=== PATIENT | male | born 1960 | race Caucasian/White ===

== ENCOUNTER 2022-12-23 23:35 | Emergency (ER) | payer SELFPAY ==
[2022-12-23 23:38] VITALS: BP 128/78; PULSE 98; RESP 18; TEMP 37.3; O2SAT 98
--- NOTE | 2022-12-23 23:40 | ED.SOB ---
HPI - SOB/Dyspnea General Chief Complaint: Unspecified Stated Complaint: Trach Issues Time Seen by Provider: 12/23/22 23:38 Source: patient and family Mode of arrival: EMS History of Present Illness HPI Narrative: 62-year-old male, hospice patient, with a history of advanced throat cancer( diagnosed in August of 2022) and deemed not a candidate for chemo/ RT, status post trach/ PEG,COPD, CAD /mi/status post stent, chronic pain arising from his throat, anxiety was brought to the ER by the EMS for -- worsening shortness of breath -- increased secretions through his tracheostomy and unable to suction affectively. his secretions or mucopurulent. EMS was successful in partially remainder some secretions RI following which he had had improved oxygenation. The patient wants to continue being on hospice. He wants affective suctioning of his secretions and possibly antibiotics. He denies any fever or chills. No chest pain. Chronic shortness of breath. MD elicited complaint: shortness of breath, cough and anxiety Pertinent past history: COPD and tracheostomy Onset (ago): unknown ( Patient has chronic shortness of breath) Context: recent illness and anxiety Timing: constant Severity: moderate Exacerbating factors: nothing Relieving factors: nothing Known history of: COPD Associated symptoms: sputum production and chest congestion Treatment prior to arrival: none Related Data Home oxygen amount: none Allergies Allergy/AdvReac Type Severity Reaction Status Date / Time No Known Allergies Allergy Verified 12/24/22 00:22 Review of Systems Review of Systems: All systems reviewed & are unremarkable except as noted in HPI and below Constitutional: Constitutional: Reports as per HPI, Reports chills and Reports weakness Eyes: Eyes: Reports as per HPI and Reports no additional eye complaints ENT: Reports system reviewed and no additional complaints, except as documented Comments: advanced throat cancer with chronic throat pain status post tracheostomy Cardiovascular: Cardiovascular: Reports as per HPI Respiratory: Respiratory: Reports as per HPI, Reports chest congestion, Reports cough and Reports dyspnea Gastrointestinal: Gastrointestinal: Reports as per HPI and Reports no additional gastrointestinal complaints Comments: on G-tube feeds. Genitourinary: Genitourinary: Reports no additional male genitourinary complaints Musculoskeletal: Musculoskeletal: Reports no additional musculoskeletal complaints and Reports as per HPI Integumentary/Breasts: Skin/Breast: Reports system reviewed and no additional complaints, except as docu and Reports as per HPI Comments: Multiple subcutaneous lipomas on the face.. Profound wasting with skin hanging down Neurologic: Reports system reviewed and no additional complaints, except as documented Psychiatric: Psychiatric: Reports no additional psychiatric complaints, Reports as per HPI and Reports anxiety Endocrine: Endocrine: Reports no additional endocrine complaints Hematologic/Lymphatic: Hematologic/Lymphatic: Reports no additional hematologic/lymphatic complaints and Reports as per HPI Allergic/Immunologic: Allergic/Immunologic: Reports no additional allergic/immunologic complaints and Reports as per HPI [facility] Past Medical History Medical History (Updated 12/24/22 @ 00:18 by Merlin Cueva MD) CAD (coronary artery disease) COPD (chronic obstructive pulmonary disease) Throat cancer Surgical History Surgical History (Updated 12/24/22 @ 00:07 by Merlin Cueva MD) H/O heart artery stent Exam Narrative: patient looks emaciated and wasted. Const: General: ill appearing Nutritional Appearance: thin Orientation/consciousness: patient oriented x3 Limitations: no limitations HENMT: Head: normal to inspection Ears: external ears normal Face/Nose/Sinus: Normal external nose present Face and sinus: normal facial exam ( multiple subcu
[2022-12-24 00:37] VITALS: RESP 20; O2SAT 98
[2022-12-24] MEDS: AMOXICILLIN/CLAVULANATE K SUSP 400-57 MG/5 ML 50 ML BOTTLE 250 MG PO (00:46)
[2022-12-24] MEDS: methylPREDNISolone SOD SUCC 125 MG VIAL 40 MG IM (00:50)
== END 2022-12-24 01:07 | disposition hospice, home (50) ==
PROVIDERS: Emergency Provider Internal Medicine Critical Care Medicine; PCP Family Medicine
DX: C14.0 Malignant neoplasm of pharynx, unspecified (principal); T17.590A Other foreign object in bronchus causing asphyxiation, initial encounter; J44.1 Chronic obstructive pulmonary disease with (acute) exacerbation; I25.10 Atherosclerotic heart disease of native coronary artery without angina pectoris; X58.XXXA Exposure to other specified factors, initial encounter
CPT/HCPCS: 96372; 99283; J2930

== ENCOUNTER 2022-12-25 22:25 | Emergency (ER) | payer SELFPAY ==
[2022-12-25 22:32] VITALS: BP 143/82; PULSE 90; RESP 22; TEMP 36.8; O2SAT 95
--- NOTE | 2022-12-25 22:34 | ED.SOB ---
HPI - SOB/Dyspnea General Chief Complaint: Unspecified Stated Complaint: Trach Issues Time Seen by Provider: 12/25/22 22:32 Source: patient Mode of arrival: ambulatory Limitations: no limitations History of Present Illness HPI Narrative: 62-year-old male, hospice patient with advanced throat cancer diagnosed in August of 2022 status post trach/ PEG, COPD, CAD status post stent, anxiety was brought to the ER with -- worsening shortness of breath. patient has had multiple episodes of shortness of breath related to mucus plugging and possibly COPD exacerbations. He presented to the ER with similar complaints yesterday. The patient was aggressively suctioned. He received Solu-Medrol 40 mg IM and Augmentin. In addition to shortness of breath patient has dizziness he denies any fever or chest pain. MD elicited complaint: shortness of breath and cough Pertinent past history: COPD Onset (ago): unknown ( Patient has had multiple such episodes in the recent past.) Timing: intermittent Severity: severe Exacerbating factors: nothing Relieving factors: nothing Known history of: COPD Associated symptoms: cough and sputum production Treatment prior to arrival: none Related Data Home Medications Medication Instructions Recorded Confirmed albuterol sulfate 2.5 mg/3 mL 2.5 mg inhalation PRN PRN Wheezing 12/25/22 12/25/22 (0.083 %) solution for nebulization lorazepam 0.5 mg tablet 0.5 mg PO PRN PRN Anxiety 12/25/22 12/25/22 morphine concentrate 100 mg/5 mL 20 mg PO PRN PRN Anxiety 12/25/22 12/25/22 (20 mg/mL) oral solution scopolamine base 1 mg over 3 days 1 mg transdermal Q3D 12/25/22 12/25/22 transdermal patch Allergies Allergy/AdvReac Type Severity Reaction Status Date / Time No Known Allergies Allergy Verified 12/24/22 00:22 Review of Systems Review of Systems: All systems reviewed & are unremarkable except as noted in HPI and below Constitutional: Constitutional: Reports as per HPI Eyes: Eyes: Reports as per HPI and Reports no additional eye complaints ENT: Reports system reviewed and no additional complaints, except as documented, Reports as per HPI and Reports dizziness Cardiovascular: Cardiovascular: Reports as per HPI and Reports no additional cardiovascular complaints Respiratory: Respiratory: Reports chest congestion, Reports cough and Reports dyspnea Gastrointestinal: Gastrointestinal: Reports as per HPI Comments: Patient has difficulty swallowing his saliva. G-tube in place. Musculoskeletal: Musculoskeletal: Reports no additional musculoskeletal complaints Integumentary/Breasts: Skin/Breast: Reports system reviewed and no additional complaints, except as docu Neurologic: Reports system reviewed and no additional complaints, except as documented and Reports as per HPI Psychiatric: Psychiatric: Reports no additional psychiatric complaints, Reports as per HPI and Reports anxiety Endocrine: Endocrine: Reports no additional endocrine complaints and Reports as per HPI Hematologic/Lymphatic: Hematologic/Lymphatic: Reports no additional hematologic/lymphatic complaints and Reports as per HPI Allergic/Immunologic: Allergic/Immunologic: Reports no additional allergic/immunologic complaints and Reports as per HPI PMFSH Past Medical History Medical History CAD (coronary artery disease) COPD (chronic obstructive pulmonary disease) Throat cancer Surgical History Surgical History H/O heart artery stent Exam Const: General: ill appearing Nutritional Appearance: thin Orientation/consciousness: patient oriented x3 HENMT: Head: normal to inspection Ears: external ears normal Face/Nose/Sinus: Normal external nose present Face and sinus: normal facial exam Eyes: Conjunctivae: conjunctivae normal Pupils: Equal, round and reactive pupils present EOM: EOMs intact bilaterally
[2022-12-25] MEDS: ACETYLCYSTEINE 20% INHAL SOLN 800 MG/4 ML VIAL 200 MG INHALATION (22:51)
[2022-12-25] MEDS: methylPREDNISolone SOD SUCC 40 MG VIAL IM (22:59)
[2022-12-25 23:00] VITALS: BP 138/80; PULSE 92; RESP 20; O2SAT 98
[2022-12-25] MEDS: LORazepam INJ (*CRX) 2 MG/ML VIAL 1 MG IM (23:00)
[2022-12-25] MEDS: ACETYLCYSTEINE 20% (23:04)
[2022-12-25] MEDS: SODIUM CHLORIDE 0.9% 3 ML NEB FOR INHALATION (23:04)
[2022-12-25] MEDS: INHAL (23:04)
[2022-12-25] MEDS: IPRATROPIUM 0.5 MG/ALBUTEROL SULFATE 2.5 MG AMPUL.NEB 3 ML INHALATION (23:09)
[2022-12-25 23:10] VITALS: PULSE 110; RESP 25; O2SAT 95
[2022-12-25 23:14] VITALS: PULSE 83; RESP 20; O2SAT 100
--- NOTE | 2022-12-25 23:21 | PC.NURSE ---
patient dirty, ill kept. daughter with bad body odor
[2022-12-25 23:23] VITALS: BP 126/80; PULSE 95; RESP 20; TEMP 36.6; O2SAT 99
== END 2022-12-25 23:36 | disposition home or self-care (01) ==
PROVIDERS: Emergency Provider Internal Medicine Critical Care Medicine; PCP Family Medicine
DX: C14.0 Malignant neoplasm of pharynx, unspecified (principal); J95.03 Malfunction of tracheostomy stoma; J44.9 Chronic obstructive pulmonary disease, unspecified
CPT/HCPCS: 94640; 96372; 99284; A9270; J2060; J2920

== ENCOUNTER 2023-01-03 14:27 | Emergency (ER) | payer OTHER, SELFPAY ==
[2023-01-03] VITALS (21 sets, daily range): BP systolic 85–108; BP diastolic 61–72; PULSE 76–110; RESP 16–20; TEMP 37.2–37.3; O2SAT 92–100
--- NOTE | ~2023-01-03 | XR_ITS ---
Portable chest x-ray Comparison: None Clinical History: Shortness of breath Findings: Tracheostomy cannula place. Probable COPD pattern of the lungs. No consolidation, pleural effusion, or pneumothorax identified. Cardiomediastinal silhouette is stable. Probable chronic left rib fracture deformities are noted. Impression: COPD. Probable chronic left rib fracture deformities. Tracheostomy cannula. Reviewed, dictated and finalized at [facility]. Impression: COPD. Probable chronic left rib fracture deformities. Tracheostomy cannula.
--- NOTE | 2023-01-03 14:56 | ED.GENADULT ---
HPI - General Adult General Chief complaint: Shortness of Breath/Dyspnea Stated complaint: SOB Time Seen by Provider: 01/03/23 14:54 Source: patient Mode of arrival: EMS Limitations: physical limitation History of Present Illness HPI narrative: patient is a 62-year-old white male with history of throat cancer, hospice patient with tracheostomy. Daughter heard him in the other room folder ground came in saw him he was in respiratory distress with obvious tracheostomy noises she tried to suction him she called EMS they got their suction him and he he became much more alert and back to his normal baseline self. His blood pressure is 125/80 respirations were 18-20 blood sugar was 156 O2 sat after suctioning was 95-97%. Breathing much more easily when he arrived. Patient does not really know what happened. patient was well earlier in day without any complaints. Patient has been in hospice visit by them once a week. EMS states they go out there 2-3 times a week to suction him or to take him to the hospital for the past couple months. Patient denies any pain or difficulty breathing once he was here and after suctioning. Related Data Home Medications Medication Instructions Recorded Confirmed albuterol sulfate 2.5 mg/3 mL 2.5 mg inhalation PRN PRN Wheezing 12/25/22 12/25/22 (0.083 %) solution for nebulization lorazepam 0.5 mg tablet 0.5 mg PO PRN PRN Anxiety 12/25/22 12/25/22 morphine concentrate 100 mg/5 mL 20 mg PO PRN PRN Anxiety 12/25/22 12/25/22 (20 mg/mL) oral solution scopolamine base 1 mg over 3 days 1 mg transdermal Q3D 12/25/22 12/25/22 transdermal patch Allergies Allergy/AdvReac Type Severity Reaction Status Date / Time No Known Allergies Allergy Verified 01/03/23 14:35 Review of Systems Review of Systems: All systems reviewed & are unremarkable except as noted in HPI and below PMFSH Past Medical History Medical History CAD (coronary artery disease) COPD (chronic obstructive pulmonary disease) Throat cancer Surgical History Surgical History H/O heart artery stent Exam Narrative: Cachectic thin white male in no apparent distress tracheostomy tube that has not been clean for some time. Head:? Normocephalic atraumatic.? Eyes conjunctiva pink sclera nonicteric.? Ears TMs are normal.? Oropharynx is clear with moist mucous membranes no exudates.? Neck is supple no lymphadenopathy nontender full range of motion.? Back is nontender.? Chest nontender.? Lungs are clear without wheezes rales or rhonchi.? Heart is regular rate rhythm without murmurs gallops or rubs.? Abdomen G-tube in place,soft and nontender no hepatosplenomegaly or masses no CVA tenderness no abdominal bruits.? Extremities no cyanosis clubbing or edema.? Neurological he is alert and oriented x4 motor and sensory grossly intact.? Skin is warm and dry without lesions. Course Vital Signs Vital signs: Vital Signs Temperature 37.3 C 01/03/23 14:35 Pulse Rate 106 H 01/03/23 14:35 Respiratory Rate 20 01/03/23 14:35 Blood Pressure 104/67 01/03/23 14:35 Pulse Oximetry 99 01/03/23 14:35 Oxygen Delivery Room Air 01/03/23 14:35 Temperature 37.3 C 01/03/23 14:35 Pulse Rate 110 H 01/03/23 15:52 Respiratory Rate 18 01/03/23 15:52 Blood Pressure 104/67 01/03/23 14:35 Pulse Oximetry 92 01/03/23 15:45 Oxygen Delivery Room Air 01/03/23 14:51 Medical Decision Making MDM Narrative Medical decision making narrative: Independent Historian: daughter EMS . I discussed with the hospice nurse who said he has esophageal cancer and she has an appointment with him tomorrow he has been in and out of hospice most recently readmitted to hospice November 25. Differential Dx includes but not limited to: pneumonia bronchitis infection electrolyte imbalance mucous plug , worsening esophageal cancer M
[2023-01-03 15:22] LABS: Hematocrit 30.4 % (40.0-54.0); Hemoglobin 9.2 g/dL (14.0-18.0); Mean Corpuscular HGB Conc 30.3 g/dL (32.0-36.0); Mean Corpuscular Hemoglobin 26.6 pg (27.0-31.0); Mean Corpuscular Volume 87.9 fL (78.0-102.0); Mean Platelet Volume 8.4 fl (8.7-11.0); Platelet Count Result 479 K/mm3 (150-420); Red Blood Count 3.46 M/mm3 (4.70-6.10); Red Cell Distribution Width 15.3 % (11.6-14.4)
[2023-01-03 15:24] LABS: White Blood Count 24.6 K/mm3 (4.8-10.8)
[2023-01-03 15:35] LABS: Alanine Aminotransferase 7 U/L (16-63); Albumin Level 2.3 g/dL (3.4-5.0); Alkaline Phosphatase 80 U/L (46-116); Anion Gap 6 mmol/L (8-16); Aspartate Amino Transferase 10 U/L (15-37); Bilirubin,Total 0.2 mg/dL (0.00-1.00); Blood Urea Nitrogen 23 mg/dL (7-18); Calcium 9.7 mg/dL (8.5-10.1); Carbon Dioxide 30 mmol/L (21-32); Chloride 102 mmol/L (98-108); Estimated Glomerular Filt Rate > 60; Glucose 133 mg/dL (70-99); Osmolality Calculated 291 mOsm/kg (285-295); Potassium 3.3 mmol/L (3.5-5.1); Sodium 138 mmol/L (136-145); Total Protein 6.3 g/dL (6.4-8.2)
[2023-01-03] MEDS: IPRATROPIUM 0.5 MG/ALBUTEROL SULFATE 2.5 MG AMPUL.NEB 3 ML INHALATION (15:40)
[2023-01-03 15:43] LABS: Total Cells Counted 100
[2023-01-03 15:44] LABS: Band Neutrophils Percent 3 % (0-6); Lymphocytes Absolute Manual 0.98 K/mm3 (1.1-4.5); Lymphocytes Percent Manual 4 % (18-44); Monocytes Absolute Manual 0.98 K/mm3 (0.1-0.90); Monocytes Percent Manual 4 % (3-9); Neutrophils Absolute Manual 23.37 K/mm3 (1.3-6.7); Neutrophils Percent Manual 92 % (46-73); Platelet Estimate Increased (Adequate); Schistocytes None Seen (NORMAL)
--- NOTE | 2023-01-03 15:54 | PC.NURSE ---
patient ambulatory to bathroom with steady gait. no distress at this time.
== END 2023-01-03 16:50 | disposition home or self-care (01) ==
PROVIDERS: Emergency Provider Emergency Medicine
DX: C14.0 Malignant neoplasm of pharynx, unspecified (principal); D72.829 Elevated white blood cell count, unspecified; J44.1 Chronic obstructive pulmonary disease with (acute) exacerbation; F41.9 Anxiety disorder, unspecified
CPT/HCPCS: 36415; 71045; 80053; 85025; 94640; 99283